=== PATIENT | male | born 1970 | race Hispanic/Latino ===

== ENCOUNTER 2016-08-31 00:12 | Emergency (ER) | payer SELFPAY ==
[2016-08-31 00:14] VITALS: BP 148/83; PULSE 74; RESP 16; O2SAT 98
--- NOTE | 2016-08-31 00:37 | ED.REPORT ---
HPI-Chest Pain 40 and Over Date of Service Aug 31, 2016 ED Provider: Poli Camargo MD The patient is a healthy 45 year old male who presents to the ED with left- sided chest pain onset 1.5 hours prior to arrival. The pain is described as "pressure" and "tightness," without exacerbating factors. The patient also reports palpitations described as "heart racing." He denies pleuritic pain, SOB , or other symptoms. The patient took ASA at home just prior to arrival, with some relief. His father today of an CO. Nursing Notes Stated Complaint: CHEST PRESSURE/PAIN Chief Complaint: Chest Pain Nursing Notes Reviewed: Yes Allergies: Coded Allergies: No Known Allergies (Unverified , 08/31/16) General Time Seen by MD: 00:26 Chief Complaint Chest pain Hx Obtained From: Patient Arrived By: Walk-in Sudden in Onset?: Yes Onset Occurred: 1 - 4 hours ago Symptom Duration: Since onset Location: : Chest left Quality: Painful (Tightness), Pressure Severity: Current: Moderate Severity: Maximum: Moderate Pertinent Negative: Exacerbated by nothing, Relieved by nothing Recent Healthcare: No recent doctor visit Past Medical History Past Medical History None reported Past Surgical History None reported Family History Father had diabetes, of CO Smoking History Current Every Day Smoker Social History Alcohol Use: Denies alcohol use Drug Use: Denies drug use Other Social History: Good social support Ambulatory Status Independent Review of Systems Constitutional: Denies: Fever Respiratory: Denies: Pleuritic pain, Shortness of breath Cardiovascular: Reports: Chest pain (Left-sided), Palpitations ("Heart racing") GI: Denies: Diarrhea, Vomiting Complete sys rev & neg: except as marked. Physical Exam Initial Vital Signs Vital Signs (First) Date Time Temp Pulse Resp B/P Pulse Ox O2 Delivery O2 Flow Rate FiO2 08/31/16 00:14 36.4 74 16 148/83 98 Room Air Initial VS: Reviewed, Vital signs normal Head / Eyes: Atraumatic, Normocephalic ENT: Conjunctiva normal, No scleral icterus Neck: Supple, Full range of motion Skin: Warm, Dry, No cyanosis Neurologic: Alert, Oriented, Nonfocal General/Constitutional: Awake, Alert, No acute distress Fit physique Respiratory / Chest: Atraumatic, Breath sounds NL, Breath sounds = bilat, No respiratory distress, No chest tenderness Cardiovascular: Heart rate NL, Regular rhythm, Heart sounds NL Abdomen: Soft, Non-tender Lower Extremity / Pelvis / MS: Neurologic intact, Vascular intact Chronic venous changes left kiser Psychiatric: Affect NL Abnormal Mood/Affect: Positive: Depressed Interpretation & Diagnostics Lab Results Interpretation Result Diagram: 08/31/165 08/31/165 Test 08/31/16 00:35 White Blood Count 6.9th/mm3 (3.8-10.1) Red Blood Count 4.77mil/mm3 (4.40-5.80) Hemoglobin 15.4g/dL (13.8-17.2) Hematocrit 43.9% (41.0-50.0) Mean Corpuscular Volume 92.0fL (81-100) Mean Corpuscular Hemoglobin 32.3pg (27.0-35.0) Mean Corpuscular Hemoglobin Concent 35.1% (32.0-37.0) Red Cell Distribution Width 11.3% (12.3-15.4) Platelet Count 218bil/L (150-400) Neutrophils (%) (Auto) 49.2% (40-74) Lymphocytes (%) (Auto) 33.3% (14-46) Monocytes (%) (Auto) 8.1% (4-12) Eosinophils (%) (Auto) 8.9% (0-5) Basophils (%) (Auto) 0.4% (0-3) Hold Urine Received (Received) Sodium Level 139mEq/L (134-144) Potassium Level 3.7mEq/L (3.5-5.2) Chloride Level 101mEq/L (97-108) Carbon Dioxide Level 22mmol/L (18-29) Blood Urea Nitrogen 18mg/dL (6-24) Creatinine 0.93mg/dL (0.76-1.27) Estimat Glomerular Filtration Rate 94mL/min (>59) Glucose Level 132mg/dL (60-99) Calcium Level 9.2mg/dL (8.5-10.1) Magnesium Level 1.9mg/dL (1.6-2.6) Total Bilirubin 0.3mg/dL (0.0-1.2) Aspartate Amino Transf (AST/SGOT) 29U/L (0-50) Alanine Aminotransferase (ALT/SGPT) 58U/L (0-44) Alkaline Phosphatase 78U/L (25-150) Troponin T 0.010ug/L (0.0-0.011) Total Protein 7.1g/dL (6.4-8.4) Albumin 4.6g/dL (3.4-5.0) Lab values outside NL range: no clinical significance. Lab Results Interpretation: Troponin negative ECG Interpretation ECG Interpretation: Sinus rhythm rate 71 Probable left atrial enlargement Left axis deviation Time: 00:28 Interpreted by: ED physician X-Ray Chest Interpretation Chest Xray Interpretation: Normal exam View: Portable, 1 view Interpretation / Wet Read by: Wet read ED physician Re-Eval/Medical Decision Med Decision/Clinical Course Voided 5-year-old male whose father today. He was quite upset and had an episode of chest pain. This is now resolved. EKG is normal and initial troponin is negative. He has minimal risk factors. He was given a dose of Ativan and had complete resolution of his symptoms with that. He does not desire to stay for a repeat troponin. Time of Eval: 02:10 Patient Status: Condition improved Re-Evaluation/Progress Note: Discussed with patient x-ray and lab results, diagnosis, and plan for discharge. Follow-up and return to the ER instructions given. Patient agrees with plan for care and all questions were addressed. Counseled Regarding: Diagnosis, Lab results, Need for follow-up, When/why to return to ED Discharge & Departure Primary Impression: Chest pain with low risk for cardiac etiology Additional Impressions: Anxiety Grief Disposition: Home Discharge Condition All VS Reviewed: Yes Condition: Improved Patient Instructions: Grief and Loss (ED) Additional Instructions: No evidence of damage or abnormality of the heart. I think your symptoms are all related to stress, anxiety, and grief. Follow-up with your primary doctor as needed for recurrent symptoms. Referrals: Timoteo King MD (PCP) Scribe Attestation Portions of this note were transcribed by Lynnette Coronel. I, Dr. Camargo, personally performed the history, physical exam, and medical decision-making; I reviewed and confirmed the accuracy of the information in the transcribed note. Signed by: Lee Giraldo, 08/31/2016, 02:55 copies to: Timoteo King MD, Howard L MD Aug 31, 2016 00:37 LYNNETTE CORONEL J Aug 31, 2016 00:43
[2016-08-31 00:46] LABS: BASOPHILS % (AUTO) 0.4 % (0-3); EOSINOPHILS % (AUTO) 8.9 % (0-5); MONOCYTES % (AUTO) 8.1 % (4-12); Mean Corpuscular Hemoglobin 32.3 pg (27.0-35.0); NEUTROPHILS % (AUTO) 49.2 % (40-74); Platelet Count 218 bil/L (150-400)
[2016-08-31 01:40] LABS: Magnesium 1.9 mg/dL (1.6-2.6); TROPONIN T 0.01 ug/L (0.0-0.011)
[2016-08-31] MEDS ORDERED: LORazepam 1 mg Tablet PO ONE (02:15)
[2016-08-31 02:20] VITALS: BP 130/75; PULSE 57; RESP 18; O2SAT 97
--- NOTE | 2016-08-31 08:34 | DRSVH ---
PROCEDURE: X-RAY CHEST ONE VIEW, PORTABLE ([id number]) INDICATIONS: CHEST PAIN TECHNIQUE: One view of the chest was acquired. COMPARISON: None. FINDINGS: Surgical changes and devices: None. Lungs and pleura: No pleural effusions or pneumothorax. Lungs are clear. Mediastinum: Mediastinal contours appear normal. Heart size is normal. Bones and chest wall: No suspicious bony lesions. Overlying soft tissues appear unremarkable. IMPRESSION: No acute cardiopulmonary pathology. Dictated by: Michael Zapien M.D. on 08/31/2016 at 8:27 Approved by: Michael Zapien M.D. on 08/31/2016 at 8:27
== END 2016-08-31 02:22 | disposition home or self-care (01) ==
LOC: EDBD 00:12 → SED 00:12
DX: R07.89 Other chest pain (principal); F41.9 Anxiety disorder, unspecified; F43.21 Adjustment disorder with depressed mood; F17.200 Nicotine dependence, unspecified, uncomplicated